=== PATIENT | female | born 2000 | race Caucasian/White ===

== ENCOUNTER 2022-08-09 07:59 | Inpatient (IN) ==
[2022-08-09] MEDS ORDERED: OXYTOCIN 30 UNITS/500 ML BAG IV PRN ×3 (08:40→19:06)
[2022-08-09] MEDS ORDERED: LIDOCAINE 1% LOCAL 20 ML VIAL INFIL PRN (08:40)
[2022-08-09] MEDS ORDERED: Patient's HEIGHT &/or WEIGHT Needed SCH (09:00)
[2022-08-09 09:09] LABS: Hematocrit (blood only) 34.4 % (34.1-44.9); Mean Corpuscular Hemoglobin 31.3 pg (25.0-34.0); Mean Corpuscular Hgb Conc 34.9 g/dL (32.0-36.0); Mean Corpuscular Volume 89.6 fL (80.0-100.0); Mean Platelet Volume 11.4 fL (9.4-12.3); Platelet Count 202 K/uL (130-400); RDW Coefficient of Variation 12.9 % (11.5-14.5); RDW Standard Deviation 42.1 fL (36.4-46.3); Red Blood Count 3.84 M/uL (3.93-5.22); White Blood Count 7.67 K/ul (4.8-10.8)
[2022-08-09] MEDS: LACTATED RINGER'S 1,000 ML IV PRN ×3 (09:25→17:30)
--- NOTE | 2022-08-09 09:46 | History & Physical Report ---
Date of Service August 09, 2022 Assessment & Plan (1) Supervision of normal intrauterine in primigravida: (2) History of marijuana use: (3) Insulin controlled gestational diabetes mellitus (GDM) during : Escobar Mir is a 22-year-old currently at 40 weeks 3 days gestational age presents for induction of labor. Patient has been treated as a gestational diabetic due to opting to skip glucose screening. 1. Fetus: Cat 1 2. Labor: Ocampo/Pitocin 3. GBS negative 4. gDM - BGx1. patient has not been on insulin but has also not been compliant with blood sugar monitoring 5. Vitals WNL 6. Hx Mj use - UDS pending Admission and Anticipated Discharge Date Admission Date: August 09, 2022 History of Present Illness Primary Care Provider: WOLF Hennessy Adeola is a 22-year-old currently at 40 weeks 3 days gestational age presents for induction of labor. Patient has been treated as a gestational diabetic as she opted to to skip glucose screening. Growth ultrasound show expected normal weight . otherwise complicated by history of marijuana use reports stopping during OB Labs: Blood Type O Positive 12/30/21 Antibody Screen NEGATIVE 12/30/21 Hemoglobin 13.2 g/dL (12.0-16.0) 01/08/22 Hematocrit 38.7 % (37-47) 01/08/22 Mean Corpuscular Volume 90.4 fL (80-100) 01/08/22 Platelet Count 355 K/uL (130-400) 01/08/22 Rubella IgG Antibody Immune (Immune) 12/30/21 Rapid Plasma Reagin Nonreactive (Nonreactive) 12/30/21 Hepatitis B Surface Antigen Neg (Neg) 12/30/21 Hepatitis C Antibody Neg (Neg) 12/30/21 HIV (1&2) Ab and P24 Ag, 4th Gener Neg (Neg) 12/30/21 Glucose 1 Hour 50 gm Load 148 mg/dl (70-130) H 02/24/22 OB Optional Labs: Chlamydia trachomatis RNA NOT DETECTED (NOT DETECTED) 12/30/21 Neisseria gonorrhoeae RNA NOT DETECTED (NOT DETECTED) 12/30/21 Labs Reviewed: UDS-positive marijuana--mln declines csf/sma--mln low risk panorama--akh declines afp--akh Allergies Allergy/AdvReac Type Severity Reaction Status Date / Time No Known Allergies Allergy Verified 08/08/22 13:24 Home Medications Medication Instructions Recorded Confirmed Type prenat.vits,dee,[id number] 1 tab PO DAILY 12/29/21 08/08/22 History Patient History Surgical History History of placement of ear tubes S/P tonsillectomy Social History Smoking Status: Never smoker Second Hand Exposure: Yes; Do You Dip or Chew Tobacco: No; Tobacco Cessation Education Requested by Patient: No Hx Alcohol Use: No Hx Substance Use: No Preferred Language: Lao marital status: Single marital status details: Florin (25) [phone] Current Living Situation: Family and Significant Other Current Living Situation Comment: lives with FOB, grandparents, 1 dog. current occupation: [employer]. Feels Safe at Home: Yes Safety Concerns: Feels Safe At This Time Physical Exam Gastrointestinal (Abdomen): Percussion/Palpation: abdomen soft; abdomen nontender, no guarding and no hepatomegaly Genitourinary: OB Exam Abdomen: + vertex Manual OB Exam: + cervical dilation 1 cm, + cervical effacement 50% and + station -2 OB Exam Monitor Tracing: + external FHT monitor used, + external uterine monitor used, + category I and + normal FHT variability; no early decelerations present, no late decelerations present and no variable decelerations Results & Data ([facility]) Vital Signs (Past 12 Hours) Vital Signs Temp Pulse Resp BP 08/09/22 09:08 36.9 C 18 134/92 08/09/22 09:10 65 142/94 H 08/09/22 08:35 71 134/92 Coding Level of Care Code None Diagnoses Supervision of normal intrauterine in primigravida Z34.00 History of marijuana use Z87.898 Insulin controlled gestational diabetes mellitus (GDM) during O24.414
[2022-08-09] MEDS ORDERED: ePHEDrine sulfate 50 MG/ML AMP ONE (11:02)
[2022-08-09] MEDS ORDERED: SODIUM CHLORIDE 0.9% INJ 10 ML VIAL ONE (11:03)
[2022-08-09] MEDS ORDERED: fentaNYL 2MCG/ML ROPIVACAINE 1.25MG/ML 100 ML BAG EPI ONE (11:03)
[2022-08-09] MEDS ORDERED: LIDOCAINE 2%/EPINEPHRINE 1:200,000 20 ML SDV ONE (11:03)
[2022-08-09] MEDS ORDERED: BUPIVACAINE 0.25% 30 ML VIAL ONE (11:03)
[2022-08-09] MEDS ORDERED: fentaNYL citrate 100 MCG/2 ML VIAL ONE (11:03)
[2022-08-09] MEDS ORDERED: NALOXONE HCL 1 MG in SODIUM CHLORIDE 0.9% 1000ML 1,000 ML IV PRN (11:50)
[2022-08-09] MEDS ORDERED: NALBUPHINE HCL INJ 10 MG/ML AMP IV PRN (11:50)
[2022-08-09] MEDS ORDERED: fentaNYL 2MCG/ML ROPIVACAINE 1.25MG/ML 100 ML BAG EPI PRN (11:50)
[2022-08-09] MEDS ORDERED: ePHEDrine sulfate 50 MG/ML AMP IV PRN (11:50)
[2022-08-09] MEDS ORDERED: ONDANSETRON INJ 2 MG/ML 2 ML VIAL IV PRN (11:50)
[2022-08-09] MEDS ORDERED: NALOXONE HCL 0.4 MG/1 ML VIAL/CARP IV PRN (11:50)
[2022-08-09] MEDS ORDERED: diphenhydrAMINE 50 MG/ML VIAL IV PRN (11:50)
--- NOTE | 2022-08-09 11:50 | Anesthesiology Consultation ---
Date of Service August 09, 2022 Assessment & Plan ASA ASA2 Proposed Anesthesia Anesthesia Type: Labor Epidural Risk / Benefits Reviewed With: PT / POA / Parent / Guardian, Accepts Plan and Informed Consent Obtained History Height/Weight Height: 5 ft Weight: 83.007 kg Allergies Allergy/AdvReac Type Severity Reaction Status Date / Time No Known Allergies Allergy Verified 08/08/22 13:24 Medications Home Medications Medication Instructions Recorded Confirmed Last Taken prenat.vits,dee,qjl-[id number]-kgiqf 1 tab PO DAILY 12/29/21 08/09/22 08/08/22 09:00 Active Medications Generic Name Dose Route Start Last Admin Trade Name Freq PRN Reason Stop Dose Admin Lactated Ringer's 1,000 mls @ 125 mls/hr 08/09/22 08:40 08/09/22 11:42 Lr IV 08/11/22 08:39 999 mls/hr .Q8H PRN Administration L&D Protocol Protocol Oxytocin 30 units in 500 mls @ 6 mls/hr 08/09/22 08:41 08/09/22 10:45 Pitocin IV 08/11/22 08:40 0.36 units/hr .Q24H PRN 6 mls/hr Labor Induction/Augmentation Titration Protocol 0.36 UNITS/HR Exercise / Class Metabolic Activity II 4-5 Yardwork/Stairs/Walk up hill Past Surgical History Surgical History History of placement of ear tubes S/P tonsillectomy Past Anesthesia History No Hx of Anesthesia Complications and No Family Hx of Anesthesia Complications History of PONV No Hx of PONV and No Hx of Motion Sickness Social History Smoking Status: Never smoker Do You Dip or Chew Tobacco: No Hx Alcohol Use: No Hx Substance Use: No substance use type: former substance user Last Used Substance Other:: Stopped with + HPT Review of Systems denies fever/cough/ colds/ chest pain/ SOB/ JEANA denies JEANA Physical Exam Vital Signs Last Vital Signs Temp 36.6 C 08/09/22 11:30 Pulse 85 08/09/22 12:12 Resp 18 08/09/22 11:30 BP 128/84 08/09/22 12:12 Pulse Ox 99 08/09/22 12:09 ENMT Mouth: no TMJ abnormality and no dentition abnormality Thyromental Distance: > or= 3.5 Finger Breadths Mallampati Class: II Neck neck extension not limited Respiratory normal respiratory effort; no respiratory distress Auscultation: lungs clear to auscultation bilaterally Cardiovascular Rate/Rhythm: regular rate and regular rhythm Neurologic moves all extremities Psychiatric Orientation: alert and oriented x 3 Testing Laboratory Results 08/09/22 08:52
[2022-08-09 11:52] LABS: Amphetamines+Metham, Urine Neg (Neg); Barbiturates, Urine Neg (Neg); Benzodiazepine, Urine Neg (Neg); Cocaine, Urine Neg (Neg); MDMA (Ecstacy), Urine Neg (Neg); Methadone, Urine Neg (Neg); Opiate, Urine Neg (Neg); Phencyclidine, Urine Neg (Neg)
--- NOTE | 2022-08-09 12:31 | Labor Progress Brief Note ---
Date of Service August 09, 2022 Subjective Reason For Note: Routine Evaluation Assessment & Plan (1) Supervision of normal intrauterine in primigravida: (2) History of marijuana use: (3) Insulin controlled gestational diabetes mellitus (GDM) during : Escobar Mir is a 22-year-old currently at 40 weeks 3 days gestational age presents for induction of labor. Patient has been treated as a gestational socorro betic due to opting to skip glucose screening. 1. Fetus: Cat 1 2. Labor: s/p Ocampo. continue pitocin. AROM clr 3. GBS negative 4. gDM - BGx1. patient has not been on insulin but has also not been compliant with blood sugar monitoring 5. Vitals WNL 6. Hx Mj use - UDS pending Admission and Anticipated Discharge Date Admission Date: August 09, 2022 Physical Exam Genitourinary: Manual OB Exam: + cervical dilation 4 cm, + cervical effacement 80%, + station -2 and + amniotic fluid bloody OB Exam Monitor Tracing: + external FHT monitor used, + external uterine monitor used, + category I and + normal FHT variability; no early decelerations present, no late decelerations present and no variable decelerations Results & Data ([facility]) Vital Signs (Past 12 Hours) Vital Signs Temp Pulse Resp BP Pulse Ox 08/09/22 09:08 36.9 C 18 134/92 08/09/22 12:27 111 H 129/90 08/09/22 12:24 94 H 98 08/09/22 12:19 87 99 08/09/22 12:14 72 99 08/09/22 12:12 85 128/84 08/09/22 12:09 74 99 08/09/22 12:08 75 142/98 H 08/09/22 12:06 88 137/89 08/09/22 12:05 75 184/109 H 08/09/22 12:04 92 08/09/22 12:04 89 08/09/22 12:04 87 99 08/09/22 12:03 75 162/96 H 08/09/22 12:01 77 157/86 H 08/09/22 11:59 81 99 08/09/22 11:54 91 H 168/98 H 97 08/09/22 11:49 64 100 08/09/22 11:44 76 98 08/09/22 11:39 70 99 08/09/22 11:34 70 100 08/09/22 11:30 18 08/09/22 11:30 36.6 C 18 08/09/22 11:29 69 100 08/09/22 11:28 71 153/91 H 08/09/22 10:44 57 L 141/91 H 08/09/22 09:59 66 147/98 H 08/09/22 09:10 65 142/94 H 08/09/22 08:35 71 134/92 Coding Level of Care Code None Diagnoses Supervision of normal intrauterine in primigravida Z34.00 History of marijuana use Z87.898 Insulin controlled gestational diabetes mellitus (GDM) during O24.414
[2022-08-09] MEDS ORDERED: SUCCINYLCHOLINE 100MG/5ML SYR IV ONE (18:14)
[2022-08-09] MEDS ORDERED: PROPOFOL IV EMULSION 10 MG/ML 20 ML VIAL IV ONE (18:14)
[2022-08-09] MEDS ORDERED: DIPHTHERIA/TETANUS/PERTUSSIS 0.5 ML SYR/VIAL IM ONE (19:06)
[2022-08-09] MEDS ORDERED: bisacodyL 10 MG SUPP PR PRN (19:06)
[2022-08-09] MEDS ORDERED: HYDROCORTISONE ACETATE 25 MG SUPP PR PRN (19:06)
--- NOTE | 2022-08-09 20:06 | Anesthesiology Progress Note ---
Date of Service August 09, 2022 Anesthesia Post Procedure Vital Signs Vital Signs: Temp Pulse Resp BP Pulse Ox 08/09/22 09:08 36.9 C 18 134/92 08/09/22 19:58 75 145/90 H 08/09/22 19:32 78 146/84 H 08/09/22 19:21 83 156/75 H 08/09/22 19:18 93 H 169/86 H 08/09/22 19:02 94 H 148/70 H 08/09/22 18:47 86 150/89 H 08/09/22 18:32 104 H 147/85 H 08/09/22 18:22 93 H 165/82 H 08/09/22 18:20 96 H 97 08/09/22 18:18 100 H 152/82 H 08/09/22 18:17 112 H 91 08/09/22 18:15 86 100 08/09/22 18:10 98 H 100 08/09/22 18:05 111 H 96 08/09/22 18:04 107 H 90 08/09/22 17:59 114 H 99 08/09/22 17:58 85 93 08/09/22 17:54 103 H 100 08/09/22 17:53 100 H 86 L 08/09/22 17:50 78 166/89 H 08/09/22 17:49 84 186/127 H 100 08/09/22 17:44 93 H 100 08/09/22 17:43 87 137/90 08/09/22 17:39 78 100 08/09/22 17:34 83 99 08/09/22 17:32 82 151/95 H 08/09/22 17:29 79 100 08/09/22 17:24 74 100 08/09/22 17:19 72 149/86 H 100 08/09/22 17:14 77 99 08/09/22 17:09 68 100 08/09/22 17:04 76 100 08/09/22 17:02 76 156/86 H 08/09/22 16:59 77 100 08/09/22 16:54 88 98 08/09/22 16:49 90 156/89 H 96 08/09/22 16:44 78 98 08/09/22 16:39 78 98 08/09/22 16:34 79 98 08/09/22 16:32 78 138/88 08/09/22 16:29 86 99 08/09/22 16:24 85 98 08/09/22 16:19 82 98 08/09/22 16:17 80 136/96 92 08/09/22 16:14 86 98 08/09/22 16:09 74 99 08/09/22 16:04 74 98 08/09/22 16:02 78 138/78 08/09/22 15:59 77 98 08/09/22 15:54 96 H 97 08/09/22 15:49 87 98 08/09/22 15:44 82 97 08/09/22 15:39 83 97 08/09/22 15:34 73 97 08/09/22 15:32 73 136/84 08/09/22 15:29 76 98 08/09/22 15:24 85 98 08/09/22 15:20 83 133/81 08/09/22 15:19 75 98 08/09/22 15:14 77 98 08/09/22 15:09 79 98 08/09/22 15:04 80 98 08/09/22 15:03 81 132/78 08/09/22 14:59 77 98 08/09/22 14:54 78 98 08/09/22 14:49 86 98 08/09/22 14:48 80 133/89 08/09/22 14:15 18 08/09/22 14:15 36.9 C 18 08/09/22 14:44 84 99 08/09/22 14:39 74 98 08/09/22 14:34 75 97 08/09/22 14:33 77 127/73 08/09/22 14:29 75 98 08/09/22 14:24 93 H 98 08/09/22 14:19 74 08/09/22 14:19 78 129/75 97 08/09/22 14:14 80 98 08/09/22 14:09 86 98 08/09/22 14:04 82 98 08/09/22 13:59 85 99 08/09/22 13:58 87 129/84 08/09/22 13:54 78 98 08/09/22 13:49 87 98 08/09/22 13:44 98 H 97 08/09/22 13:43 91 H 119/74 08/09/22 13:39 82 97 08/09/22 13:34 96 H 98 08/09/22 13:29 72 97 08/09/22 13:27 81 106/64 08/09/22 13:24 87 98 08/09/22 13:19 78 97 08/09/22 13:14 74 97 08/09/22 13:12 83 108/64 08/09/22 13:09 81 98 08/09/22 13:04 81 97 08/09/22 12:59 78 98 08/09/22 12:57 83 113/69 08/09/22 12:54 86 99 08/09/22 12:49 87 98 08/09/22 12:44 73 08/09/22 12:44 77 111/70 98 08/09/22 12:39 78 97 08/09/22 12:34 97 H 99 08/09/22 12:29 90 99 08/09/22 12:27 111 H 129/90 08/09/22 12:24 94 H 98 08/09/22 12:19 87 99 08/09/22 12:14 72 99 08/09/22 12:12 85 128/84 08/09/22 12:09 74 99 08/09/22 12:08 75 142/98 H 08/09/22 12:06 88 137/89 08/09/22 12:05 75 184/109 H 08/09/22 12:04 92 08/09/22 12:04 89 08/09/22 12:04 87 99 08/09/22 12:03 75 162/96 H 08/09/22 12:01 77 157/86 H 08/09/22 11:59 81 99 08/09/22 11:54 91 H 168/98 H 97 08/09/22 11:49 64 100 08/09/22 11:44 76 98 08/09/22 11:39 70 99 08/09/22 11:34 70 100 08/09/22 11:30 18 08/09/22 11:30 36.6 C 18 08/09/22 11:29 69 100 08/09/22 11:28 71 153/91 H 08/09/22 10:44 57 L 141/91 H 08/09/22 09:59 66 147/98 H 08/09/22 09:10 65 142/94 H 08/09/22 08:35 71 134/92 Pain Intensity Back: Pain Intensity: 0 Transfer of Care Handoff Completed per policy Notes Mental Status: alert / awake / arousable and participated in evaluation Patient Amnestic to Procedure: Yes Nausea / Vomiting: adequately controlled Pain: adequately controlled Airway Patency, RR, SpO2: stable & adequate BP & HR: stable & adequate Hydration State: stable & adequate Anesthetic Complications: no major complications apparent and Pt Satisfied with anesthetic care
[2022-08-09] MEDS: ACETAMINOPHEN 325 MG TAB PO PRN (20:40)
[2022-08-09] MEDS: BENZOCAINE 20% AER SPR 82.5 GM CAN EXT PRN ×2 (20:41→23:40)
[2022-08-09] MEDS: IBUPROFEN 600 MG TAB PO PRN (20:41)
--- NOTE | 2022-08-09 21:17 | Operative Report (OR) ---
DATE OF SERVICE: 08/09/2022 PROCEDURE: Vacuum-assisted vaginal delivery with second-degree perineal laceration repair and bilate ral labial laceration repair. SURGEON: Sarabjit Bonilla MD. PREOPERATIVE DIAGNOSES: 1. Single intrauterine at 40 weeks 3 days' gestational age. 2. Gestational diabetes by noncompliance. The patient declined blood glucose management and care. 3. intolerance of labor at complete dilation. ESTIMATED BLOOD LOSS: 300 mL DRAINS: Straight cath prior to placement of vacuum. URINE OUTPUT: Minimal urine output. INDICATIONS: Adeola is a 22-year-old G1, P0, at 40 weeks 3 days' gestational age, presented for ind uction of labor. The patient was initially started on a Ocampo balloon with currently running Pitocin per regular protocol. Ocampo balloon came out around 11:30 and the patient received an epidural for anesthesia. The patient was then checked and found to be 4 cm dilated, 80% effaced, negative 1 stati on and underwent artificial rupture of membranes. The patient continued to progress in labor with ox ytocin per regular protocol. Around 5 o'clock, the patient was noted to start having recurrent variab le decelerations and the Pitocin was discontinued. Around 5:40, the patient was noted to have a prolo nged decel and I went out to check on the patient to assess. At that time, we had placed a scal p electrode. The patient was found to be 9.5 cm dilated and tasneem about every 2-3 minutes per patient report and as best we tell from the tocometer. The heart rate after the FSE was placed, was n oted to be back to normal range with good variability; however, with the next contraction, the heart rate did decline and entered another prolonged deceleration. Upon evaluation, the cervix was noted t o be gone, the patient was complete-complete, +2 station. We discussed placement of a vacuum for vac uum-assisted delivery with the patient. Discussed risks of the procedure. Discussed the indication being intolerance of labor with prolonged decel and discussed the risks of hematoma, shou lder dystocia and obstetric lacerations. DESCRIPTION OF PROCEDURE: The vacuum was placed and suction was increased until within the green zon e. With approximately 2 contractions and with traction, the head was noted to have good descen t after the second contraction, pop-off was noted with the third contraction, pop-off was noted and t he vacuum was replaced. Additional contraction or two were performed with good descent and was approximately +3 station. Another pop-off did occur, after which the vacuum was replaced initially f or pull with the next contraction, although during that, it was felt that the heart rate was improvin g and we would try pushing without the vacuum and so we pushed without the vacuum for several contrac tions with good descent and then the heart rate was noted to be back within the 80-90 range and the vacuum was replaced and the head of the was brought up to approximately +3 station or be tter and then the vacuum was removed. A third pop-off did occur. The vacuum was abandoned and addit ional pushing occurred with good descent. During this process, I did ask that OR be prepped, anesthe billie and pediatrics be called in for assistance. We continued to push while we were waiting for the O R and anesthesia to arrive and the patient continued to have good progression with each push. Once the head was low enough that it could felt to be only an outlet vacuum necessary, the vacuum was replaced and the head was brought up to position and then the vacuum was removed. The ryder ent pushed over the rest of that contraction to achieve delivery of the head. The body and shoulders quickly followed. The cord was double clamped and cut. was quickly taken to the waiting [facility] staff for evaluation. Initial Apgars were 7 with a 5-minute Apgars also 7. Cord blood and cor d segment were obtained. Attention was then turned to delivery of placenta, which was delivered inta ct, 3-vessel cord, gentle cord traction. On inspection of perineum and vagina, cervix, there was not ed to be a second-degree perineal laceration with bilateral extension of the right and left labia shimon ora. The second-degree laceration was repaired with 3-0 Vicryl in a traditional crown stitch. The b ilateral labial lacerations were repaired with 3-0 Vicryl continuous running stitch. Needle, sponge, and instrument counts were correct at the completion of the case. Both mother and stable in the immediate post-delivery period. Job ID: [id number]
[2022-08-10] MEDS: DOCUSATE SODIUM 100 MG CAP PO SCH ×3 (00:25→19:59)
[2022-08-10] MEDS: IBUPROFEN 600 MG TAB PO PRN ×3 (05:47→23:39)
--- NOTE | 2022-08-10 07:35 | Obstetrical Progress Note ---
Date of Service August 10, 2022 Assessment & Plan (1) Encounter for care and examination after delivery: Day 1 s/p . Doing well. Routine care Subjective Ambulation: ambulating normally Voiding: no voiding problems Passing Gas:: Yes Diet Tolerance:: regular diet Lochia:: Moderate Feeding Type:: breast feeding Physical Exam Constitutional WD/WN, vitals as above Respiratory normal respiratory effort; no respiratory distress and no labored breathing Gastrointestinal (Abdomen) Inspection/Auscultation: abdomen normal to inspection; abdomen not distended Percussion/Palpation: abdomen soft; abdomen nontender, no guarding and abdomen not rigid Genitourinary OB Exam Abdomen: + fundal height Fundus: + firm and + relation to umbilicus (Below); not tender or not boggy Results & Data ([facility]) Vital Signs (Past 12 Hours) Vital Signs Temp Pulse Pulse Resp BP BP 08/10/22 02:57 36.4 C L 88 20 138/74 08/10/22 00:16 36.7 C 66 18 126/82 08/09/22 21:35 37.2 C 68 18 138/76 08/09/22 20:23 75 139/74 08/09/22 19:58 75 145/90 H
[2022-08-10 08:17] LABS: Hematocrit (blood only) 29.4 % (34.1-44.9); Hemoglobin 10.3 g/dl (12.0-16.0)
[2022-08-10] MEDS: PRENATAL VITAMIN 1 TAB PO SCH (08:52)
[2022-08-10] MEDS: FERROUS SULFATE 325 MG TAB PO SCH (08:52)
[2022-08-10 15:59] LABS: Basophils # (auto) 0.02 K/uL (0-0.2); Basophils % (auto) 0.2 %; Eosinophils # (auto) 0.02 K/uL (0-0.50); Eosinophils % (auto) 0.2 %; Hematocrit (blood only) 31.8 % (34.1-44.9); Hemoglobin 10.9 g/dl (12.0-16.0); Immature Granulocytes # (auto) 0.03 K/uL (0.00-0.02); Immature Granulocytes % (auto) 0.3 %; Lymphocytes # (auto) 2.08 K/uL (1.2-3.4); Lymphocytes % (auto) 17.9 %; Mean Corpuscular Hemoglobin 31.2 pg (25.0-34.0); Mean Corpuscular Hgb Conc 34.3 g/dL (32.0-36.0); Mean Corpuscular Volume 91.1 fL (80.0-100.0); Mean Platelet Volume 11.5 fL (9.4-12.3); Monocytes # (auto) 0.73 K/uL (0.24-0.82); Monocytes % (auto) 6.3 %; Neutrophils # (auto) 8.75 K/uL (1.4-6.5); Neutrophils % (auto) 75.1 %; Platelet Count 187 K/uL (130-400); RDW Coefficient of Variation 13.2 % (11.5-14.5); RDW Standard Deviation 42.7 fL (36.4-46.3); Red Blood Count 3.49 M/uL (3.93-5.22); White Blood Count 11.63 K/ul (4.8-10.8)
[2022-08-10 16:09] LABS: Alanine Aminotransferase 8 U/L (7-52); Alkaline Phosphatase 115 U/L (34-104); Aspartate Aminotransferase 18 U/L (13-39); Bilirubin Direct 0.1 mg/dl (0-0.2); Bilirubin,Total 0.8 mg/dl (0.2-1.0); Creatinine Clr Calc Pharmacy 153.2 ml/min; Est GFR (African American) > 150.0 ml/min; Est GFR (Non-African American) 133.1 ml/min; Total Protein 5.3 gm/dl (6.0-8.3)
[2022-08-10] MEDS ORDERED: bisacodyL 5 MG TABEC PO SCH (20:00)
[2022-08-11] MEDS: IBUPROFEN 600 MG TAB PO PRN ×2 (04:51→14:14)
--- NOTE | 2022-08-11 07:02 | Obstetrical Progress Note ---
Date of Service <Raciel Springer DO - Last Filed: 08/11/22 08:02> August 11, 2022 Assessment & Plan <Raciel Springer DO - Last Filed: 08/11/22 08:02> (1) Encounter for care and examination after delivery: Plan - Feels well today. Eating well, voiding well, ambulating well. - Pain well controlled with ibuprofen 600mg Q4H PRN - Routine care -- OOB, ambulation, diet progression as tolerated - After discharge will have 6 week follow-up with Dr. Bonilla - Patient had some high BP yesterday afternoon. PIH lab workup was negative. BP better overnight. - D/C today <Belen Sanchez MD, FACOG - Last Filed: 08/11/22 08:12> (1) Encounter for care and examination after delivery: Subjective <Raciel Springer DO - Last Filed: 08/11/22 08:02> Ambulation: ambulating normally Voiding: no voiding problems Passing Gas:: Yes Diet Tolerance:: regular diet Lochia:: Small Feeding Type:: breast feeding Current Pain Level(1-10): 0 Review of Systems Denies fever, chills, sweats Denies shortness of breath, difficulty breathing, chest pain, palpitations, chest pressure. Denies breast pain. Denies dysuria. Denies headache or changes in vision. Physical Exam <Raciel Springer DO - Last Filed: 08/11/22 08:02> General: Alert, oriented. No acute distress. Cardiac: Regular rate and rhythm, no murmurs/rubs/gallops. Respiratory: Clear to auscultation bilaterally a/p, no wheezes/rales/rhonchi. No increased work of breathing. Symmetrical chest rise. No respiratory distress. Abdomen: Soft, nontender, nondistended. Bowel sounds present. Uterus: Uterine fundus firm Lower Extremities: No lower extremity edema or swelling. No deep calf pain. Ho man's negative bilaterally. Results & Data ([facility]) <Raciel Springer DO - Last Filed: 08/11/22 08:02> Vital Signs (Past 12 Hours) Vital Signs Temp Pulse Resp BP O2 Del Method 08/11/22 00:00 36.8 C 80 16 129/85 Room Air 08/10/22 20:00 36.8 C 76 16 128/86 Room Air <Belen Sanchez MD, FACOG - Last Filed: 08/11/22 08:12> Co-Signing Physician Notes Resident Physician Supervision Note: I interviewed and examined the patient. Discussed with Dr. Springer and agree with findings and plan as documented in the note. Any exceptions or clarifications are listed here: [None] Documented By: Belen Sanchez MD, FACOG Resident Activity Tracking <Raciel Springer DO - Last Filed: 08/11/22 08:02> Resident Involvement: Resident Care Provided Care Provided: OB Delivery
[2022-08-11] MEDS: FERROUS SULFATE 325 MG TAB PO SCH (07:44)
[2022-08-11] MEDS: PRENATAL VITAMIN 1 TAB PO SCH (07:44)
[2022-08-11] MEDS: ACETAMINOPHEN 325 MG TAB PO PRN (07:44)
[2022-08-11] MEDS: DOCUSATE SODIUM 100 MG CAP PO SCH (07:44)
== END 2022-08-11 14:35 | disposition home or self-care (01) | DRG 807 ==
LOC: 4S1 08:26 → 4E2 21:54

== ENCOUNTER 2024-05-05 06:19 | Inpatient (IN) ==
[2024-05-05] MEDS ORDERED: OXYTOCIN 30 UNITS/NSS 30 UNITS/500 ML BAG IV PRN ×2 (10:49→18:31)
[2024-05-05] MEDS ORDERED: LIDOCAINE 1% LOCAL 20 ML VIAL INFIL PRN (10:49)
--- NOTE | 2024-05-05 10:55 | History & Physical Report ---
Date of Service May 05, 2024 Assessment & Plan (1) Diet controlled gestational diabetes mellitus in third trimester: Plan: 23 yo at 38 6/7 wga presents in labor VSS, most recent bp mild but likely due to pain. Will get labs w/ admit labs Fetus cat 1 Labor - augment prn A1GDM - will get bg GBS neg epidural prn History of Present Illness Chief Complaint: ctx Primary Care Provider: NO PCP 23 yo at 38 6/7 wga presented w/ c/o ctx. Called this am w/ ctx q5-6 min but tolerable however continued over next few hours so rec for eval. 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 G2 current denies hx stis Allergies Allergy/AdvReac Type Severity Reaction Status Date / Time No Known Allergies Allergy Verified 04/29/24 13:14 Home Medications Medication Instructions Recorded Confirmed Type prenat.vits,dee,hnw-nluh-sogru 1 tab PO DAILY 12/29/21 05/05/24 History acetone (urine) test (Ketone Urine #50 ea 12/26/23 05/05/24 Rx Test strips) blood sugar diagnostic (OneTouch #150 ea 12/26/23 05/05/24 Rx Verio test strips) lancets 33 gauge (OneTouch Delica #150 ea 12/26/23 05/05/24 Rx Plus Lancet) blood-glucose meter (OneTouch #1 ea 01/02/24 05/05/24 Rx Verio Flex Meter) Patient History Medical History GDM (gestational diabetes mellitus) History of marijuana use Surgical History History of placement of ear tubes S/P tonsillectomy Family History (Updated 05/05/24 @ 06:41 by Karen Ballard, ALMA) Grandfather (Maternal) Hypertension Stroke Social History (Updated 05/05/24 @ 06:42 by Karen Ballard, RN) Smoking Status: Never smoker Second Hand Exposure: Yes; Do You Dip or Chew Tobacco: No; Hx Alcohol Use: No Hx Substance Use: No Preferred Language: Persian Communication Ability: Effective 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 Other Information That Helps Us Care for You: No Feels Safe at Home: Yes Safety Concerns: Feels Safe At This Time Assistive Devices: None Physical Exam Genitourinary: OB Exam Abdomen: + estimated weight (7-8) OB Exam Monitor Tracing: + external FHT monitor used, + external uterine monitor used (q3-5) and + category I (130/mod/+accel/-decel) SVE 2cm by nursing Results & Data Vital Signs (Past 12 Hours) Vital Signs Temp Pulse Resp BP 05/05/24 10:22 87 140/92 05/05/24 07:01 16 05/05/24 07:01 98.1 F 16 05/05/24 07:00 100 H 132/87 05/05/24 06:57 97 H 156/99 H 05/05/24 06:47 98.4 F 88 18 125/86 05/05/24 06:43 98.4 F 18 Laboratory Results OB Labs: Blood Type O Positive 11/28/23 Antibody Screen NEGATIVE 11/28/23 Hemoglobin 12.0 g/dl (12.0-16.0) 03/25/24 Hematocrit 36.2 % (37.0-47.0) L 03/25/24 Mean Corpuscular Volume 86.5 fL (80.0-100.0) 11/28/23 Platelet Count 305 K/uL (130-400) 11/28/23 Rubella IgG Antibody Immune (Immune) 11/28/23 Rapid Plasma Reagin Nonreactive (Nonreactive) 11/28/23 Hepatitis B Surface Antigen Neg (Neg) 12/30/21 Hepatitis B Surface Antigen. NON-REACTIVE (NON-REACTIVE) 11/28/23 Hepatitis C Antibody Neg (Neg) 12/30/21 Hepatitis C Antibody (EIA) NON-REACTIVE (NON-REACTIVE) 11/28/23 HIV (1&2) Ab and P24 Ag, 4th Gener Neg (Neg) 12/30/21 HIV (1&2) Ag and Ab Confirmation NON-REACTIVE (NON-REACTIVE) 11/28/23 Glucose 1 Hour 50 gm Load 148 mg/dl (70-130) H 02/24/22 OB Optional Labs: Chlamydia trachomatis RNA Not Detected (NotDetected) 11/28/23 Neisseria gonorrhoeae RNA Not Detected (NotDetected) 11/28/23 Labs Reviewed: no labs to pull forward from prior , HK low risk cfdna - sln CF carrier gbs neg Diagnostic Findings 04/23 EFW 54%, AC 64%, R lat plac Coding Level of Care Code None Diagnoses Diet controlled gestational diabetes mellitus in third trimester O24.410
[2024-05-05] MEDS: LACTATED RINGER'S 1,000 ML IV PRN (11:23)
[2024-05-05 11:49] LABS: Alanine Aminotransferase 6 U/L (7-52); Albumin Globulin Ratio 1.2 (0.9-2); Albumin Level 3.6 gm/dl (3.4-5.0); Alkaline Phosphatase 135 U/L (34-104); BUN Creatinine Ratio 21.3 (10-20); Bilirubin,Total 0.9 mg/dl (0.2-1.0); Blood Urea Nitrogen 10 mg/dl (6-23); Calcium 9.2 mg/dl (8.6-10.3); Carbon Dioxide 22 mmol/L (21-32); Chloride 104 mmol/L (98-107); Creatinine Clr Calc Pharmacy 191.1 ml/min; Est GFR (African American) > 150.0 ml/min; Est GFR (Non-African American) 139.2 ml/min; Globulin 3.1 gm/dl (2.5-4.0); Glucose 78 mg/dl (70-99(Fasting)); Total Protein 6.7 gm/dl (6.0-8.3)
[2024-05-05 12:24] LABS: Hematocrit (blood only) 34.7 % (37.0-47.0); Hemoglobin 11.5 g/dl (12.0-16.0); Mean Corpuscular Hemoglobin 29.8 pg (25.0-34.0); Mean Corpuscular Hgb Conc 33.1 g/dL (32.0-36.0); Mean Corpuscular Volume 89.9 fL (80.0-100.0); Mean Platelet Volume 11.1 fL (9.4-12.4); Platelet Count 199 K/uL (130-400); RDW Coefficient of Variation 13.7 % (11.5-14.5); RDW Standard Deviation 45.2 fL (36.4-46.3); Red Blood Count 3.86 M/uL (4.20-5.40)
[2024-05-05 12:34] LABS: Potassium 3.8 mmol/L (3.5-5.1)
--- NOTE | 2024-05-05 13:28 | Labor Progress Brief Note ---
Date of Service May 05, 2024 Subjective handling ctx Assessment & Plan (1) Diet controlled gestational diabetes mellitus in third trimester: Plan: 23 yo at 38 6/7 wga presents in labor VSS Fetus cat 1 Labor - good progress, now s/p arom A1GDM - will get bg GBS neg epidural prn Physical Exam Genitourinary: Manual OB Exam: + cervical dilation (3-4), + cervical effacement 50%, + station -2 and + amniotic fluid (arom clear) OB Exam Monitor Tracing: + external FHT monitor used, + external uterine monitor used (q3-5) and + category I (120/mod/+accel/-decel) Results & Data Vital Signs (Past 12 Hours) Vital Signs Temp Pulse Resp BP 05/05/24 12:55 74 131/86 05/05/24 12:40 86 128/80 05/05/24 12:30 16 05/05/24 12:30 98.2 F 16 05/05/24 11:55 80 131/85 05/05/24 11:25 89 132/92 05/05/24 10:22 87 140/92 05/05/24 07:01 16 05/05/24 07:01 98.1 F 16 05/05/24 07:00 100 H 132/87 05/05/24 06:57 97 H 156/99 H 05/05/24 06:47 98.4 F 88 18 125/86 05/05/24 06:43 98.4 F 18 Coding Level of Care Code None Diagnoses Diet controlled gestational diabetes mellitus in third trimester O24.410
[2024-05-05] MEDS ORDERED: NALBUPHINE HCL 5 MG in SYRINGE 0 ML IV PRN (13:41)
[2024-05-05] MEDS ORDERED: ePHEDrine sulfate 50 MG/ML AMP IV PRN (13:41)
[2024-05-05] MEDS ORDERED: SODIUM CHLORIDE 0.9% PF INJ 10 ML VIAL EPI PRN (13:41)
[2024-05-05] MEDS ORDERED: diphenhydrAMINE 50 MG/ML VIAL IV PRN (13:41)
[2024-05-05] MEDS ORDERED: fentANYL 2 MCG/ML BUPIVacaine 0.125%-NSS 100ML BAG EPI PRN (13:41)
[2024-05-05] MEDS ORDERED: NALOXONE HCL 0.4 MG/1 ML VIAL/CARP IV PRN (13:41)
[2024-05-05] MEDS ORDERED: BUPIVACAINE 0.25% PF 30 ML VIAL EPI PRN (13:41)
[2024-05-05] MEDS ORDERED: NALOXONE HCL 1 MG in SODIUM CHLORIDE 0.9% 1,000 ML IV PRN (13:41)
[2024-05-05] MEDS ORDERED: fentaNYL citrate PF 100 MCG/2 ML VIAL EPI PRN (13:41)
[2024-05-05] MEDS ORDERED: LIDOCAINE 2% MPF LOCAL 5 ML VIAL EPI PRN (13:41)
[2024-05-05] MEDS ORDERED: ROPIVACAINE 0.5% PF 5 MG/ML 20 ML VIAL EPI PRN (13:41)
--- NOTE | 2024-05-05 13:42 | Anesthesiology Consultation ---
Date of Service May 05, 2024 Assessment & Plan Chart Review Chart Review: Acceptable Risk for Labor Epidural Consults Requested none History Height/Weight Height: 5 ft Weight: 94.347 kg Allergies Allergy/AdvReac Type Severity Reaction Status Date / Time No Known Allergies Allergy Verified 04/29/24 13:14 Medications Home Medications Medication Instructions Recorded Confirmed Last Taken prenat.vits,dee,ghq-bphr-nlxhz 1 tab PO DAILY 12/29/21 05/05/24 05/04/24 acetone (urine) test (Ketone Urine #50 ea 12/26/23 05/05/24 Unknown Test strips) blood sugar diagnostic (OneTouch #150 ea 12/26/23 05/05/24 Unknown Verio test strips) lancets 33 gauge (OneTouch Delica #150 ea 12/26/23 05/05/24 Unknown Plus Lancet) blood-glucose meter (OneTouch #1 ea 01/02/24 05/05/24 Unknown Verio Flex Meter) Active Medications Generic Name Dose Route Start Last Admin Trade Name Freq PRN Reason Stop Dose Admin Lactated Ringer's 1,000 mls @ 125 mls/hr 05/05/24 10:49 05/05/24 13:35 Lr IV 05/07/24 10:48 999 mls/hr .Q8H PRN Infusion L&D Protocol Protocol Past Medical History Medical History GDM (gestational diabetes mellitus) History of marijuana use Past Family History Family History (Updated 05/05/24 @ 06:41 by Karen Ballard RN) Grandfather (Maternal) Hypertension Stroke Past Surgical History Surgical History History of placement of ear tubes S/P tonsillectomy Social History Smoking Status: Never smoker Do You Dip or Chew Tobacco: No Hx Alcohol Use: No Hx Substance Use: No substance use type: former substance user Last Used Substance Other:: Stopped with + HPT Physical Exam Vital Signs Last Vital Signs Temp 37.1 C 05/05/24 13:20 Pulse 85 05/05/24 13:27 Resp 16 05/05/24 12:30 BP 133/90 05/05/24 13:27 Genitourinary OB Exam Abdomen: + estimated weight (7-8) Manual OB Exam: + cervical dilation (3-4), + cervical effacement + 50%, + station + -2 and + amniotic fluid (arom clear) OB Exam Monitor Tracing: + external FHT monitor used, + external uterine monitor used (q3-5) and + category I (120/mod/+accel/-decel) Testing Laboratory Results 05/05/24 12:02 05/05/24 12:02 05/05/24 10:45 POC Glucose 77
[2024-05-05] MEDS: fentANYL 2 MCG/ML BUPIVacaine 0.125%-NSS 100ML BAG ONE (14:09)
[2024-05-05] MEDS: LIDOCAINE 2%/EPINEPHRINE 1:200,000 20 ML PF ONE (14:09)
[2024-05-05] MEDS: BUPIVACAINE 0.25% PF 30 ML VIAL ONE (14:11)
[2024-05-05] MEDS: fentaNYL citrate PF 100 MCG/2 ML VIAL ONE (14:11)
[2024-05-05] MEDS: ePHEDrine sulfate 50 MG/ML AMP ONE (14:11)
[2024-05-05] MEDS: SODIUM CHLORIDE 0.9% PF INJ 10 ML VIAL ONE (14:12)
[2024-05-05] MEDS: LIDOCAINE 2%/EPINEPHRINE 1:200,000 20 ML PF EPI STA (15:26)
--- NOTE | 2024-05-05 16:39 | Labor Progress Brief Note ---
Date of Service May 05, 2024 Subjective comfortable w/ epidural Assessment & Plan (1) Diet controlled gestational diabetes mellitus in third trimester: Plan: 23 yo at 38 6/7 wga presents in labor VSS Fetus cat 1 Labor - progressed in effacement, discussed pitocin for augmentation and pt in agreement A1GDM - will get bg GBS neg epidural in place Admission and Anticipated Discharge Date Admission Date: May 05, 2024 Physical Exam Genitourinary: Manual OB Exam: + cervical dilation 4 cm, + cervical effacement 80% and + station -2 OB Exam Monitor Tracing: + external FHT monitor used, + external uterine monitor used (q3-5) and + category I (125/mod/+accel/-decel) Results & Data Vital Signs (Past 12 Hours) Vital Signs Temp Pulse Resp BP Pulse Ox 05/05/24 16:35 96 H 100 05/05/24 16:33 93 H 127/76 05/05/24 16:30 92 H 18 98 05/05/24 16:25 102 H 99 05/05/24 16:20 98 H 99 05/05/24 16:18 96 H 116/58 L 05/05/24 16:15 101 H 99 05/05/24 16:10 102 H 99 05/05/24 16:07 99 H 103/61 05/05/24 16:05 94 H 98 05/05/24 16:01 90 103/58 L 05/05/24 16:00 91 H 16 97 05/05/24 15:55 81 100 05/05/24 15:50 82 96 05/05/24 15:46 85 103/59 L 05/05/24 15:45 96 H 99 05/05/24 15:44 101 H 107/56 L 05/05/24 15:41 82 115/55 L 05/05/24 15:40 93 H 99 05/05/24 15:35 95 H 18 98 05/05/24 15:31 111 H 16 131/78 05/05/24 15:30 115 H 99 05/05/24 15:29 103 H 127/76 05/05/24 15:27 105 H 134/88 05/05/24 15:26 16 05/05/24 15:26 16 05/05/24 15:25 98.6 F 05/05/24 15:25 99 05/05/24 15:25 105 H 05/05/24 15:25 100 H 133/83 05/05/24 15:20 87 100 05/05/24 15:15 97 H 100 05/05/24 15:14 111 H 131/86 05/05/24 15:10 101 H 99 05/05/24 15:05 103 H 99 05/05/24 15:00 94 H 98 05/05/24 14:54 77 99 05/05/24 14:49 88 99 05/05/24 14:44 75 100 05/05/24 14:43 96 H 144/84 H 05/05/24 14:41 100 H 119/74 05/05/24 14:39 108 H 124/77 100 05/05/24 14:37 96 H 127/79 05/05/24 14:35 76 123/83 05/05/24 14:34 93 H 98 05/05/24 14:33 74 126/82 05/05/24 14:31 82 132/81 05/05/24 14:30 18 05/05/24 14:30 18 05/05/24 14:29 83 128/77 99 05/05/24 14:27 90 131/73 05/05/24 14:24 76 100 05/05/24 14:23 88 125/75 05/05/24 14:21 85 142/73 H 05/05/24 14:19 99 05/05/24 14:19 94 H 05/05/24 14:19 88 130/81 05/05/24 14:17 82 125/77 05/05/24 14:15 81 16 130/83 05/05/24 14:14 87 99 05/05/24 14:13 83 136/86 05/05/24 14:11 76 131/82 05/05/24 14:09 93 H 134/84 99 05/05/24 14:08 16 05/05/24 14:08 16 05/05/24 14:07 100 H 137/84 05/05/24 14:05 87 141/88 H 05/05/24 14:04 95 H 100 05/05/24 13:59 100 H 100 05/05/24 13:55 84 139/90 05/05/24 13:54 98 H 100 05/05/24 13:49 98 H 100 05/05/24 13:44 88 97 05/05/24 13:27 85 133/90 05/05/24 13:26 85 143/100 H 05/05/24 13:20 98.8 F 05/05/24 12:55 74 131/86 05/05/24 12:40 86 128/80 05/05/24 12:30 16 05/05/24 12:30 98.2 F 16 05/05/24 11:55 80 131/85 05/05/24 11:25 89 132/92 05/05/24 10:22 87 140/92 05/05/24 07:01 16 05/05/24 07:01 98.1 F 16 05/05/24 07:00 100 H 132/87 05/05/24 06:57 97 H 156/99 H 05/05/24 06:47 98.4 F 88 18 125/86 05/05/24 06:43 98.4 F 18 Coding Level of Care Code None Diagnoses Diet controlled gestational diabetes mellitus in third trimester O24.410
[2024-05-05] MEDS: OXYTOCIN 30 UNITS/NSS 30 UNITS/500 ML BAG IV PRN (16:47)
--- NOTE | 2024-05-05 18:26 | Delivery Summary ---
Vaginal Delivery Summary Date of Service May 05, 2024 Vaginal Delivery Summary and 2nd Degree LAC PREOPERATIVE DIAGNOSIS: 1. Single intrauterine at 38 6/7 wga 2. Labor 3. A1GDM POSTOPERATIVE DIAGNOSIS: 1. Single intrauterine at 38 6/7 wga 2. Labor 3. A1GDM 4. Delivered PROCEDURE: 1. Normal spontaneous vaginal delivery. SURGEON: Barbara Garcia MD ANESTHESIA: Epidural. QUANTITATIVE BLOOD LOSS: 150 mL FLUIDS: Continuous LR. URINE OUTPUT: None. COMPLICATIONS: None. CONDITION: Stable. INDICATIONS: 23 yo at 38 6/7 wga presented this morning in early labor. She continued to progress spontaneously and underwent arom. She received an epidural for pain control. Pitocin was started for augmentation and she rapidly progressed to complete and desired to push FINDINGS: A viable male , weight pending with Apgars of 8 and 10 at 1 and 5 minutes respectively. SPECIMEN: Cord blood OPERATIVE REPORT: The patient progressed to 10 cm, 100% effaced and +2 station, pushed over intact perineum with anesthesia to deliver a viable male , weight and Apgars as above. Head of delivered in ZARINA position. No nuchal cord was present. Body and shoulders were delivered without difficulty. was delivered to maternal abdomen and nursing staff. Delayed cord clamping was performed for 60 seconds. Cord was clamped and cut. Cord blood was obtained. Placenta delivered spontaneously intact with 3-vessel cord. IV oxytocin and fu ndal massage were given for excellent hemostasis. Vagina, cervix, perineum, and placenta were inspected. Second degree laceration was repaired using 3-0 vicryl, there was good hemostasis. Sponge and needle counts correct x2. No sponges were left behind. Mother and stable in immediate period. [facility] [place] Vaginal Delivery Charge Vaginal Delivery Codes: 87469 global code for the antepartum, delivery, and post- Delivery Type Details: and 2nd Degree LAC
[2024-05-05] MEDS ORDERED: HYDROCORTISONE ACETATE 25 MG SUPP PR PRN (18:31)
[2024-05-05] MEDS ORDERED: ACETAMINOPHEN 325 MG TAB PO PRN (18:31)
[2024-05-05] MEDS ORDERED: bisacodyL 10 MG SUPP PR PRN (18:31)
[2024-05-05] MEDS: IBUPROFEN 600 MG TAB PO PRN (19:08)
[2024-05-05] MEDS: DIPHTHER/TETAN/PERTUS Vaccine (Tdap, Adol/Adult) 0.5mL IM ONE (19:09)
[2024-05-05] MEDS: fentaNYL citrate PF 100 MCG/2 ML VIAL EPI STA (19:10)
[2024-05-05] MEDS: SODIUM CHLORIDE 0.9% PF INJ 10 ML VIAL EPI STA (19:10)
[2024-05-05] MEDS: BUPIVACAINE 0.25% PF 30 ML VIAL EPI STA (19:11)
[2024-05-05] MEDS: DOCUSATE SODIUM 100 MG CAP PO SCH (21:07)
[2024-05-05] MEDS: BENZOCAINE 20% SPRY 85 APPLN/85 GM CAN EXT PRN (21:07)
--- NOTE | 2024-05-06 06:17 | Obstetrical Progress Note ---
Date of Service <Kiyabecki Murguia DO - Last Filed: 05/06/24 06:18> May 06, 2024 Assessment & Plan <Kiyabecki Murguia DO - Last Filed: 05/06/24 06:18> (1) care following vaginal delivery: Feels well today. Eating well, voiding well, ambulating well. Pain well controlled with prn analgesics. Routine care; OOB, ambulation, diet progression as tolerated. Anticipate discharge 24-48 hours after , today or tomorrow. After discharge will have 6 week follow-up with Dr. Garcia. <Barbara Garcia MD - Last Filed: 05/06/24 06:49> (1) care following vaginal delivery: Subjective <Kiyabecki Murguia DO - Last Filed: 05/06/24 06:18> Pt is a 23 y/o female who is PPD#1 following at 38 weeks. Today, pt states she is feeling well, just a bit sore all over. Otherwise no questions or complaints. Cramping is mild and improved with prn pain meds and bleeding is improving. Tolerating intake and voiding without issue. She is breast feeding and it is going well. Would like to go home today at the 24 hour nura today. Constitutional: no fever, no chills or no sweats Respiratory: no dyspnea Cardiovascular: no chest pain or no palpitations Breast: no breast pain Genitourinary (female): no dysuria Neurologic: no headache(s) no changes in vision, no headaches Physical Exam <Kiya Murguia DO - Last Filed: 05/06/24 06:18> General: Alert, oriented. No acute distress. Cardiac: Regular rate and rhythm, no murmurs, rubs, or gallops. Respiratory: Clear to auscultation bilaterally, no wheezes/rales/rhonchi. No increased work of breathing. Symmetrical chest rise. No respiratory distress. Abdomen: Soft, nontender, nondistended. Bowel sounds present. Uterus: Uterine fundus firm, palpable just below the umbilicus. Lower extremities: No lower extremity edema or swelling. No deep calf pain. Results & Data <Kiya Murguia DO - Last Filed: 05/06/24 06:18> Vital Signs (Past 12 Hours) Vital Signs Temp Pulse Pulse Resp BP BP Pulse Ox 05/06/24 05:00 36.7 C 71 18 147/94 H 99 05/06/24 01:10 36.9 C 81 18 138/91 98 05/05/24 21:40 36.8 C 99 H 18 129/89 97 05/05/24 20:32 90 05/05/24 20:32 137/82 05/05/24 20:20 36.8 C 18 05/05/24 20:16 102 H 05/05/24 20:16 122/69 05/05/24 20:02 112 H 132/74 05/05/24 19:50 37.1 C 18 05/05/24 19:48 98 H 126/74 05/05/24 19:31 90 124/73 05/05/24 19:26 103 H 123/75 05/05/24 19:05 37.1 C 18 05/05/24 19:01 136/73 05/05/24 18:50 16 05/05/24 18:47 100 H 124/74 05/05/24 18:35 16 05/05/24 18:20 36.9 C 18 05/05/24 18:17 103 H 137/64 05/05/24 18:15 104 H 99 O2 Del Method 05/06/24 05:00 Room Air 05/06/24 01:10 Room Air 05/05/24 21:40 Room Air 05/05/24 20:32 05/05/24 20:32 05/05/24 20:20 05/05/24 20:16 05/05/24 20:16 05/05/24 20:02 05/05/24 19:50 05/05/24 19:48 05/05/24 19:31 05/05/24 19:26 05/05/24 19:05 05/05/24 19:01 05/05/24 18:50 05/05/24 18:47 05/05/24 18:35 05/05/24 18:20 05/05/24 18:17 05/05/24 18:15 Supervising Physician <Barbara Garcia MD - Last Filed: 05/06/24 06:49> Co-Signing Physician Notes Resident Physician Supervision Note: I interviewed and examined the patient. Discussed with Dr. Murguia and agree with findings and plan as documented in the note. Any exceptions or cla rifications are listed here: PP1 s/p , doing well. Few mild range bps, had normal labs yesterday. Will watch today, likely wants dc at 24 hrs Documented By: Barbara Garcia MD Resident Activity Tracking <Kiya Murguia, DO - Last Filed: 05/06/24 06:18> Resident Involvement: Resident Care Provided Care Provided: OB Delivery
[2024-05-06] MEDS: FERROUS SULFATE 325 MG TAB PO SCH (12:10)
[2024-05-06] MEDS: PRENATAL VITAMIN 1 TAB PO SCH (12:10)
[2024-05-06] MEDS ORDERED: bisacodyL 5 MG TABEC PO SCH (20:00)
== END 2024-05-06 20:15 | disposition home or self-care (01) | DRG 807 ==
LOC: OPB 06:19 → 4S1 06:22 → 4E2 22:07